=== PATIENT | female | born 1990 | race Caucasian/White ===

== ENCOUNTER 2016-12-05 22:36 | Emergency (ER) | payer MEDICAID, OTHER ==
[~2016-12-05] VITALS: Ht 160 cm; Wt 49.8 kg
[2016-12-05 22:59] VITALS: BP 108/77; PULSE 100; RESP 16; TEMP 98.5; O2SAT 99
[2016-12-05 23:59] VITALS: BP 106/63; PULSE 91; RESP 20; TEMP 97.7; O2SAT 100
--- NOTE | 2016-12-06 01:01 | PD ---
HPI Chief Complaint: Cold / Flu Symptoms Time Seen by Provider: 00:47 Travel History International Travel<30 days: No Contact w/Intl Traveler<30days: No Traveled to known affect area: No History of Present Illness HPI The patient is a 26-year-old female that for 7 days has had a cough which is usually nonproductive but occasionally productive of green sputum, sore throat, gradual onset and global headache and nasal congestion. She has chest pain only around the lower ribs where the muscles attach and it is sharp and pleuritic. She is not short of breath. She has not had a fever. 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 [facility] Past Medical History Bipolar Disorder: Yes (BIPOLAR & PANIC DISORDER) Depression: Yes Cancer: No Diminished Hearing: No Psychiatric: Yes Immunizations Current: Yes Seizures: No Thyroid Disease: No Ulcer: No Tetanus Vaccination: > 5 Years Influenza Vaccination: Yes ?: Unknown LMP: One week ago : 5 Para: 3 Miscarriage: 2 : 0 Ovarian Cysts: Yes ([id number]) Past Surgical History Other Surgery: Yes (HIP DYSPLASA ) Social History Alcohol Use: No Tobacco Use: No Substance Use: No Allergies-Medications (Allergen,Severity, Reaction): Coded Allergies: Macrolides (Verified Allergy, Unknown, 12/05/16) Fentanyl (Verified Adverse Reaction, Severe, Itching, 12/05/16) Penicillin (Verified Adverse Reaction, Severe, Hives, 12/05/16) Sulfa (Verified Adverse Reaction, Severe, Respiratory Failure, 12/05/16) Reported Meds & Prescriptions Reported Meds & Active Scripts Active No Active Prescriptions or Reported Medications Review of Systems Except as stated in HPI: all other systems reviewed are Neg Physical Exam Narrative GENERAL: The patient is alert, oriented 3 in no respiratory distress. Her vital signs are normal. SKIN: Warm and dry. HEAD: Atraumatic. Normocephalic. EYES: Pupils equal and round. No scleral icterus. No injection or drainage. ENT: No nasal bleeding or discharge. Mucous membranes pink and moist. The tympanic membranes are clear and the throat is clear without erythema, exudate or abscess. NECK: Trachea midline. No JVD. There is no meningismus. CARDIOVASCULAR: Regular rate and rhythm. No murmur appreciated. RESPIRATORY: No accessory muscle use. Clear to auscultation. Breath sounds equal bilaterally. GASTROINTESTINAL: Abdomen soft, non-tender, nondistended. Hepatic and splenic margins not palpable. No guarding or rebound is present. MUSCULOSKELETAL: No obvious deformities. No clubbing. No cyanosis. No edema. NEUROLOGICAL: Awake and alert. No obvious cranial nerve deficits. Motor grossly within normal limits. Normal speech. PSYCHIATRIC: Appropriate mood and affect; insight and judgment normal. Data Data Last Documented VS Vital Signs Date Time Temp Pulse Resp B/P Pulse Ox O2 Delivery O2 Flow Rate FiO2 12/06/16 01:20 89 18 95/66 100 Room Air 12/05/16 23:59 97.7 Orders Group A Rapid Strep Screen (12/06/16 00:53) Chest, Pa & Lat (12/06/16 00:53) Strep Culture (Group A) (12/06/16 00:55) [facility] Medical Decision Making Medical Screen Exam Complete: Yes Emergency Medical Condition: Yes Medical Record Reviewed: Yes Interpretation(s) The strep Screen was negative for group A strep antigen. The chest x-ray shows no acute cardiopulmonary disease. Differential Diagnosis Viral upper respiratory infection, strep pharyngitis, pneumonia Narrative Course The patient has a viral upper respiratory infection. There is no evidence for pneumonia and the pharyngitis is apparently viral. Diagnosis Primary Impression: Viral syndrome Additional Instructions: As we discussed, do not drink alcohol or drive on the cough syrup. It has hydrocodone in it and can make you sleepy and dizzy. It is designed to help you sleep at night. Med/Other Pt SpecificInfo: Prescription(s) given Scripts Hydrocodone-Guaifenesin Liq (Flowtuss Liq)2.5-200 Mg/5 Ml Soln5 Ml PO Q6H PRN ( COUGH AND COLD SYMPTOMS) #200 ML Ref 0 Prov:Austin Vu MD 12/06/16 Disposition: 01 DISCHARGE HOME Condition: Stable Austin Vu MD Dec 06, 2016 01:01
[2016-12-06 01:20] VITALS: BP 95/66; PULSE 89; RESP 18; O2SAT 100
[2016-12-06] MEDS ORDERED: HYDR1SOL20 PO (02:01)
--- NOTE | 2016-12-06 02:07 | RADHPO ---
EXAM DATE/TIME: 12/06/2016 01:34 [facility] COMPARISON: CHEST PA & LAT, June 29, 2012, 14:25. INDICATIONS : Fever, cough MEDICAL HISTORY : None. SURGICAL HISTORY : None. ENCOUNTER: Initial ACUITY: 1 week PAIN SCORE: 4/10 LOCATION: Bilateral chest FINDINGS: PA and lateral views of the chest demonstrate the lungs to be symmetrically aerated without evidence of mass, infiltrate or effusion. The cardiomediastinal contours are unremarkable. Osseous structure s are intact. CONCLUSION: No acute disease. lFavio Stevens MD on December 06, 2016 at 2:06 Board Certified Radiologist. This report was verified electronically.
[2016-12-06 02:10] VITALS: BP 112/78; PULSE 87; RESP 18; O2SAT 96
[2016-12-06] MEDS ORDERED: ROBITUSSIN AC PO (09:54)
--- NOTE | 2016-12-06 09:54 | PD ---
Physical Exam Narrative Patient came back requesting different cough medication. Data Data Last Documented VS Vital Signs Date Time Temp Pulse Resp B/P Pulse Ox O2 Delivery O2 Flow Rate FiO2 12/06/16 02:10 87 18 112/78 96 Room Air 12/05/16 23:59 97.7 Orders Group A Rapid Strep Screen (12/06/16 00:53) Chest, Pa & Lat (12/06/16 00:53) Strep Culture (Group A) (12/06/16 00:55) MDM Supervised Visit with MIGUEL: Yes Diagnosis Primary Impression: Viral syndrome Referrals: Primary Care Physician call for appointment Patient Instructions: General Instructions, Viral Syndrome (ED) Departure Forms: Work Release, Enter return to work date: Dec 10, 2016 Tests/Procedures Additional Instruction: As we discussed, do not drink alcohol or drive on the cough syrup. It has hydrocodone in it and can make you sleepy and dizzy. It is designed to help you sleep at night. Scripts [Robitussin Ac] No Conflict Check10 Ml PO Q6HR #120 Prov:Jesús Barlow MD 12/06/16 Hydrocodone-Guaifenesin Liq (Flowtuss Liq)2.5-200 Mg/5 Ml Soln5 Ml PO Q6H PRN ( COUGH AND COLD SYMPTOMS) #200 ML Ref 0 Prov:Austin Vu MD 12/06/16 Disposition: 01 DISCHARGE HOME Condition: Stable Jesús Barlow MD Dec 06, 2016 09:54
== END 2016-12-06 02:21 | disposition home or self-care (01) ==
LOC: PHED 22:36
DX: B34.9 Viral infection, unspecified (principal)
CPT/HCPCS: 71020; 87081; 87880; 99284

== ENCOUNTER 2016-12-14 10:46 | Emergency (ER) | payer MEDICAID, OTHER ==
[~2016-12-14] VITALS: Ht 160 cm; Wt 50.0 kg
[~2016-12-14 10:46] MED LIST: HYDR1SOL20 PO; ROBITUSSIN AC PO
[2016-12-14 10:47] VITALS: BP 121/78; PULSE 116; RESP 24; TEMP 97.3; O2SAT 100
[2016-12-14] MEDS ORDERED: LORA-474 PO (10:57)
[2016-12-14] MEDS ORDERED: SODIUM CHLORIDE 0.9% FLUSH 5 ML FLUSH IVF PRN (11:15)
[2016-12-14] MEDS ORDERED: SODIUM CHLORID 0.9% 500 ML INJ 500 ML IV ONE (11:15)
[2016-12-14 11:16] VITALS: BP_SYST 108; BP_SYST 118; BP_DIAS 70; BP_DIAS 77; PULSE 89; RESP 18; O2SAT 99
[2016-12-14 11:17] VITALS: RESP 17; O2SAT 99
--- NOTE | 2016-12-14 11:18 | PD ---
HPI Chief Complaint: Chest Pain Time Seen by Provider: 11:11 Travel History International Travel<30 days: No Contact w/Intl Traveler<30days: No Traveled to known affect area: No History of Present Illness HPI Patient is a 26-year-old female who presents emergency department for evaluation of chest pain or shortness of breath. Patient states the pain is on her left chest under her breast, she reports that shooting to her back. She rates her pain a 10 out of 10 at times. Patient states she's been short of breath since December 15 when she was diagnosed with a viral infection. She continued to feel short of breath so a few days later she presented to [facility]. She reports being given anxiety medication. For the last 2 days patient reports passing out, she states she passed out at 3 PM yesterday began at 6 PM. She denies any head injury but endorses loss of consciousness. Prior to passing out she reports dizziness and then everything going "black". She states that pain is worse when she stands or exerts herself, it is improved with lying down but her dizziness is exacerbated when she is lying down. She denies any headaches, fevers, nausea, vomiting, diarrhea, cough, new stressors, change in appetite. Patient states she has a copper IUD and her last menstrual cycle was on November 27. [facility] Past Medical History Bipolar Disorder: Yes (BIPOLAR & PANIC DISORDER) Anxiety: Yes Depression: Yes Cancer: No Diminished Hearing: No Immunizations Current: Yes Seizures: No Thyroid Disease: No Ulcer: No Tetanus Vaccination: > 5 Years Influenza Vaccination: Yes LMP: 11/27/16 : 5 Para: 3 Miscarriage: 2 : 0 Ovarian Cysts: Yes ([id number]) Past Surgical History Other Surgery: Yes (HIP DYSPLASA ) Social History Alcohol Use: Yes (socially) Tobacco Use: Yes (occasionally) Substance Use: No Allergies-Medications (Allergen,Severity, Reaction): Coded Allergies: Macrolides (Verified Allergy, Unknown, RASH, 12/14/16) Fentanyl (Verified Adverse Reaction, Severe, Itching, 12/14/16) Penicillin (Verified Adverse Reaction, Severe, Hives, 12/14/16) Sulfa (Verified Adverse Reaction, Severe, Respiratory Failure, 12/14/16) Reported Meds & Prescriptions Reported Meds & Active Scripts Active Reported Ativan (Lorazepam) 1 Mg Tab 1 Mg PO Q6H PRN Review of Systems Except as stated in HPI: all other systems reviewed are Neg General / Constitutional: No: Fever, Chills Eyes: No: Visual changes HENT: Positive: Lightheadedness, No: Headaches Cardiovascular: Positive: Chest Pain or Discomfort, Palpitations, Tachycardia, Syncope, Dyspnea on exertion Respiratory: Positive: Shortness of Breath, No: Cough, Wheezing Gastrointestinal: No: Nausea, Vomiting, Diarrhea, Abdominal Pain Musculoskeletal: No: Myalgias Neurologic: Positive: Dizziness, Syncope, No: Focal Abnormalities, Headache, Change in Mentation, Paresthesia, Sensory Disturbance Psychiatric: No: Anxiety, Depression, Suicidal Ideations, Homicidal Ideation Physical Exam Narrative GENERAL: Well-developed, well-nourished, alert female. Appears anxious, in no acute distress. SKIN: Warm and dry. HEAD: Atraumatic. Normocephalic. EYES: Pupils equal and round. No scleral icterus. No injection or drainage. ENT: No nasal bleeding or discharge. Mucous membranes pink and moist. NECK: Trachea midline. No JVD. CARDIOVASCULAR: Tachycardic. No murmur appreciated. RESPIRATORY: No accessory muscle use. Clear to auscultation. Breath sounds equal bilaterally. Tachypneic GASTROINTESTINAL: Abdomen soft, non-tender, nondistended. Hepatic and splenic margins not palpable. MUSCULOSKELETAL: No obvious deformities. No clubbing. No cyanosis. No edema. NEUROLOGICAL: Awake and alert. No obvious cranial nerve deficits. Motor grossly within normal limits. Normal speech. PSYCHIATRIC: Anxious mood and affect; insight and judgment normal. Data Data Last Documented VS Vital Signs Date Time Temp Pulse Resp B/P Pulse Ox O2 Delivery O2 Flow Rate FiO2 12/14/16 12:12 76 17 98/66 99 Room Air 12/14/16 10:47 97.3 Orders Electrocardiogram (12/14/16 ) Ckmb (Isoenzyme) Profile (12/14/16 11:09) Complete Blood Count With Diff (12/14/16 11:09) Comprehensive Metabolic Panel (12/14/16 11:09) Magnesium (Mg) (12/14/16 11:09) Prothrombin Time / Inr (Pt) (12/14/16 11:09) Act Partial Throm Time (Ptt) (12/14/16 11:09) Troponin I (12/14/16 11:09) Chest, Single Ap (12/14/16 11:09) Ecg Monitoring (12/14/16 11:09) Bilateral Bp Monitoring (12/14/16 11:09) Iv Access Insert/Monitor (12/14/16 11:09) Oximetry (12/14/16 11:09) Oxygen Administration (12/14/16 11:09) Sodium Chloride 0.9% Flush (Ns Flush) (12/14/16 11:15) Sodium Chlorid 0.9% 500 Ml Inj (Ns 500 M (12/14/16 11:15) Ct Pulmonary Angiogram (12/14/16 11:09) Ed Urine Pregnancytest Poc (12/14/16 11:09) Lipase (12/14/16 11:12) Iohexol 350 Inj (Omnipaque 350 Inj) (12/14/16 13:12) Labs Laboratory Tests Test 12/14/16 11:20 White Blood Count 6.7 TH/MM3 Red Blood Count 4.40 MIL/MM3 Hemoglobin 12.6 GM/DL Hematocrit 37.8 % Mean Corpuscular Volume 85.9 FL Mean Corpuscular Hemoglobin 28.7 PG Mean Corpuscular Hemoglobin 33.4 % Concent Red Cell Distribution Width 14.1 % Platelet Count 232 TH/MM3 Mean Platelet Volume 8.0 FL Neutrophils (%) (Auto) 53.1 % Lymphocytes (%) (Auto) 36.5 % Monocytes (%) (Auto) 9.5 % Eosinophils (%) (Auto) 0.5 % Basophils (%) (Auto) 0.4 % Neutrophils # (Auto) 3.5 TH/MM3 Lymphocytes # (Auto) 2.4 TH/MM3 Monocytes # (Auto) 0.6 TH/MM3 Eosinophils # (Auto) 0.0 TH/MM3 Basophils # (Auto) 0.0 TH/MM3 CBC Comment DIFF FINAL Differential Comment Prothrombin Time 11.7 SEC Prothromb Time International 1.1 RATIO Ratio Activated Partial 29.7 SEC Thromboplast Time Sodium Level 137 MEQ/L Potassium Level 3.9 MEQ/L Chloride Level 106 MEQ/L Carbon Dioxide Level 21.6 MEQ/L Anion Gap 9 MEQ/L Blood Urea Nitrogen 18 MG/DL Creatinine 0.89 MG/DL Estimat Glomerular Filtration 76 ML/MIN Rate Random Glucose 80 MG/DL Calcium Level 9.2 MG/DL Magnesium Level 2.0 MG/DL Total Bilirubin 1.1 MG/DL Aspartate Amino Transf 17 U/L (AST/SGOT) Alanine Aminotransferase 16 U/L (ALT/SGPT) Alkaline Phosphatase 50 U/L Total Creatine Kinase 88 U/L Troponin I LESS THAN 0.02 NG/ML Total Protein 7.8 GM/DL Albumin 4.2 GM/DL Lipase 257 U/L MDM Medical Decision Making Medical Screen Exam Complete: Yes Emergency Medical Condition: Yes Interpretation(s) Last Impressions Chest X-Ray 12/14/16 1109 Signed Impressions: Service Date/Time: Wednesday, December 14, 2016 11:13 - CONCLUSION: Normal examination. Deanna Kelly MD CT Angiography 12/14/16 1109 Signed Impressions: Service Date/Time: Wednesday, December 14, 2016 12:58 - CONCLUSION: 1. No evidence of pulmonary embolism. Antwon Conley MD Laboratory Tests Test 12/14/16 11:20 White Blood Count 6.7 TH/MM3 Red Blood Count 4.40 MIL/MM3 Hemoglobin 12.6 GM/DL Hematocrit 37.8 % Mean Corpuscular Volume 85.9 FL Mean Corpuscular Hemoglobin 28.7 PG Mean Corpuscular Hemoglobin 33.4 % Concent Red Cell Distribution Width 14.1 % Platelet Count 232 TH/MM3 Mean Platelet Volume 8.0 FL Neutrophils (%) (Auto) 53.1 % Lymphocytes (%) (Auto) 36.5 % Monocytes (%) (Auto) 9.5 % Eosinophils (%) (Auto) 0.5 % Basophils (%) (Auto) 0.4 % Neutrophils # (Auto) 3.5 TH/MM3 Lymphocytes # (Auto) 2.4 TH/MM3 Monocytes # (Auto) 0.6 TH/MM3 Eosinophils # (Auto) 0.0 TH/MM3 Basophils # (Auto) 0.0 TH/MM3 CBC Comment DIFF FINAL Differential Comment Prothrombin Time 11.7 SEC Prothromb Time International 1.1 RATIO Ratio Activated Partial 29.7 SEC Thromboplast Time Sodium Level 137 MEQ/L Potassium Level 3.9 MEQ/L Chloride Level 106 MEQ/L Carbon Dioxide Level 21.6 MEQ/L Anion Gap 9 MEQ/L Blood Urea Nitrogen 18 MG/DL Creatinine 0.89 MG/DL Estimat Glomerular Filtration 76 ML/MIN Rate Random Glucose 80 MG/DL Calcium Level 9.2 MG/DL Magnesium Level 2.0 MG/DL Total Bilirubin 1.1 MG/DL Aspartate Amino Transf 17 U/L (AST/SGOT) Alanine Aminotransferase 16 U/L (ALT/SGPT) Alkaline Phosphatase 50 U/L Total Creatine Kinase 88 U/L Troponin I LESS THAN 0.02 NG/ML Total Protein 7.8 GM/DL Albumin 4.2 GM/DL Lipase 257 U/L Vital Signs Date Time Temp Pulse Resp B/P Pulse Ox O2 Delivery O2 Flow Rate FiO2 12/14/16 10:47 97.3 116 24 121/78 100 Room Air Differential Diagnosis Pulmonary embolism versus pleurisy versus panic attack versus anxiety versus other Narrative Course Patient is a 26-year-old female who presented to emergency room for evaluation of chest pain and shortness of breath. Patient is tachycardic and tachypneic on initial presentation. She appears slightly anxious. Patient placed on telemetry monitoring, continuous pulse oximetry, IV access initiated. EKG reviewed by me and my attending physician shows sinus rhythm with a rate of 99. Labs and imaging ordered and pending. CBC, chemistry, troponin, coags have been reviewed and are unremarkable. Chest x-ray shows no acute disease. Patient's heart rate has normalized, last set of vital signs shows a heart rate of 89, patient's well oxygenated on room air. CT scan pending. Urine test is negative. CT of the chest is negative for pulmonary embolism. Patient has been resting comfortably since she presented to emergency department, her vital signs are stable. Patient has a prescription for Ativan at home, she was encouraged to follow-up with a primary care provider or the [facility] or [facility]. She will be given a prescription for ibuprofen as pain could be pleuritic/musculoskeletal. Patient is encouraged to return to emergency department for any new or worsening symptoms. She was reassured that her labs and imaging show no sign of cardiac or pulmonary etiologies. Patient verbalized understanding of these instructions. Patient stable for discharge. Diagnosis Primary Impression: Chest pain, non-cardiac Referrals: [facility] Patient Instructions: Anxiety (ED), Chest Pain (ED), Chest Wall Pain (ED), General Instructions Additional Instructions: Follow-up with a primary doctor or at the [facility] Return to emergency department for any new or worsening symptoms Take medications as directed Med/Other Pt SpecificInfo: Prescription(s) given Scripts Ibuprofen 800 Mg Uyi125 Mg PO Q6HR PRN (PAIN) #40 TAB Ref 0 Prov:Mariluz Berg 12/14/16 Disposition: 01 DISCHARGE HOME Condition: Stable Mariluz Berg Dec 14, 2016 11:18
[2016-12-14 11:34] LABS: AUTOMATED NEUTROPHIL # 3.5 TH/MM3 (1.8-7.7); BASOPHIL % 0.4 % (0.0-2.0); EOSINOPHIL % 0.5 % (0.0-4.0); HEMATOCRIT 37.8 % (35.0-46.0); HEMO FLAGS DIFF FINAL; LYMPH % 36.5 % (9.0-44.0); LYMPHOCYTE # 2.4 TH/MM3 (1.0-4.8); MEAN CELL VOLUME 85.9 FL (80.0-100.0); MEAN CORPUSCULAR HEMOGLOBIN 28.7 PG (27.0-34.0); MEAN CORPUSCULAR HGB CONC 33.4 % (32.0-36.0); MONO % 9.5 % (0.0-8.0); NEUT % 53.1 % (16.0-70.0); PLATELET COUNT 232 TH/MM3 (150-450); RED CELL DISTRIBUTION WIDTH 14.1 % (11.6-17.2); WHITE BLOOD COUNT 6.7 TH/MM3 (4.0-11.0)
--- NOTE | 2016-12-14 11:42 | RADRPT ---
EXAM DATE/TIME: 12/14/2016 11:13 [facility] COMPARISON: No previous studies available for comparison. INDICATIONS : Chest pain, short of breath. MEDICAL HISTORY : None. SURGICAL HISTORY : None. ENCOUNTER: Initial ACUITY: 4 - 6 days PAIN SCORE: 7/10 LOCATION: Left chest FINDINGS: A single view of the chest demonstrates the lungs to be symmetrically aerated without evidence of mas s, infiltrate or effusion. The cardiomediastinal contours are unremarkable. Osseous structures are intact. CONCLUSION: Normal examination. Deanna Kelly MD on December 14, 2016 at 11:41 Board Certified Radiologist. This report was verified electronically.
[2016-12-14 11:49] LABS: APTT (PATIENT) 29.7 SEC (24.3-30.1); INTERNATIONAL NORMALIZED RATIO 1.1 RATIO; PROTHROMBIN TIME - PATIENT 11.7 SEC (9.8-11.6)
[2016-12-14 11:54] LABS: ALT (GPT) 16 U/L (10-53); ANION GAP 9 MEQ/L (5-15); AST (GOT) 17 U/L (15-37); BICARBONATE 21.6 MEQ/L (21.0-32.0); BLOOD UREA NITROGEN 18 MG/DL (7-18); CHLORIDE 106 MEQ/L (98-107); GLOMERULAR FILTRATION RATE 76 ML/MIN (>89); POTASSIUM 3.9 MEQ/L (3.5-5.1); SODIUM (NA) 137 MEQ/L (136-145)
[2016-12-14 11:55] LABS: ALKALINE PHOSPHATASE 50 U/L (45-117); CREATINE KINASE 88 U/L (26-192); TOTAL BILIRUBIN ADULT 1.1 MG/DL (0.2-1.0)
[2016-12-14 12:12] VITALS: BP 98/66; PULSE 76; RESP 17; O2SAT 99
[2016-12-14] MEDS ORDERED: IOHEXOL 350 MG/ML 10 ML VIAL (for RAD DIAG) IV ONE (13:12)
--- NOTE | 2016-12-14 13:33 | RADRPT ---
EXAM DATE/TIME: 12/14/2016 12:58 [facility] COMPARISON: No previous studies available for comparison. INDICATIONS : Short of breath. Left chest pain. IV CONTRAST: 50 cc Omnipaque 350 (iohexol) IV RADIATION DOSE: 20.33 CTDIvol (mGy) MEDICAL HISTORY : None SURGICAL HISTORY : None. ENCOUNTER: Initial ACUITY: 3 days PAIN SCALE: 8/10 LOCATION: Left chest TECHNIQUE: Volumetric scanning of the chest was performed using a pulmonary embolism protocol MIP images were re constructed. Using automated exposure control and adjustment of the mA and/or kV according to patien t size, radiation dose was kept as low as reasonably achievable to obtain optimal diagnostic quality images. FINDINGS: Examination of the pulmonary vasculature demonstrates good filling of the main, lobar and segmental b ranches. There are no filling defects to suggest pulmonary embolism. Multiplanar reconstructions are also unremarkable. Examination of the lung arora demonstrates no evidence of pulmonary nodule. No pleural fluid is iden tified. Examination of the mediastinum demonstrates no abnormally enlarged lymph nodes by CT criteria . No axillary or hilar abnormalities are identified. Coronary artery calcifications are not present. CONCLUSION: 1. No evidence of pulmonary embolism. Antwon Conley MD on December 14, 2016 at 13:26 Board Certified Radiologist. This report was verified electronically.
[2016-12-14] MEDS ORDERED: IBUP800T23 PO (13:46)
[2016-12-14 14:47] VITALS: BP 110/71; TEMP 97.8
--- NOTE | 2016-12-15 21:28 | EKG ---
Date Performed: 12/14/2016 Time Performed: 10:10:04 PTAGE: 26 years EKG: Sinus rhythm NORMAL ECG WARNING: DATA QUALITY MAY AFFECT INTERPRETATION NO PREVIOUS TRACING DOCTOR: Mahesh Lyle Interpretating Date/Time 12/15/2016 21:13:51
== END 2016-12-14 14:48 | disposition home or self-care (01) ==
LOC: NEPE 10:46
DX: R07.9 Chest pain, unspecified (principal); R00.0 Tachycardia, unspecified; R06.82 Tachypnea, not elsewhere classified; F31.9 Bipolar disorder, unspecified; F41.0 Panic disorder [episodic paroxysmal anxiety]; F41.8 Other specified anxiety disorders
CPT/HCPCS: 71010; 71275; 80053; 82550; 83690; 83735; 84484; 84703; 85025; 85610; 85730; 93005; 96360; 99284; J7040; Q9967

== ENCOUNTER 2017-04-22 15:21 | Emergency (ER) | payer MEDICAID, OTHER ==
[~2017-04-22] VITALS: Ht 157.5 cm; Wt 49.0 kg
[~2017-04-22 15:21] MED LIST changes: -HYDR1SOL20 PO; +IBUP800T23 PO; +LORA-474 PO; -ROBITUSSIN AC PO
[2017-04-22 15:25] VITALS: BP 112/78; PULSE 100; RESP 16; TEMP 98.3; O2SAT 99
[2017-04-22 15:42] VITALS: O2SAT 98
[2017-04-22] MEDS ORDERED: ALEV220T14 PO (15:47)
[2017-04-22] MEDS ORDERED: SODIUM CHLOR 0.9% 1000 ML INJ 1,000 ML IV SCH (15:55)
[2017-04-22] MEDS ORDERED: ONDANSETRON HCL 4 MG/2 ML VIAL IVP ONE (16:00)
[2017-04-22] MEDS ORDERED: KETOROLAC TROMETHAMINE 30 MG/ML (IVP) VIAL IVP ONE (16:00)
[2017-04-22 16:03] LABS: BLOOD, URINE NEG (NEG); GLUCOSE,URINE NEG (NEG); KETONE, URINE NEG (NEG); NITRITE,URINE NEG (NEG)
--- NOTE | 2017-04-22 16:06 | PD ---
HPI Chief Complaint: Flank/Kidney Pain Time Seen by Provider: 15:50 Travel History International Travel<30 days: No Contact w/Intl Traveler<30days: No Traveled to known affect area: No History of Present Illness HPI 27-year-old female complains of right flank pain and right-sided abdominal pain. Patient states that the pain started last night. Patient states the pain is sharp pain constant pain started on the right flank area with radiation to right side abdomen. Patient denies any fever chills. Patient states that she has intermittent nausea vomiting. Patient states that she has dysuria last week but not this week. Patient denies any vaginal discharge or bleeding. Patient states that her last menstrual period was April 10. Patient states that she probably passed kidney stone recently. Patient did not see any physician for kidney stone recently. Patient states that she has history kidney stone when she was about 10 years ago. On a scale of 1-10 the pain is an 8. PFSH Past Medical History Bipolar Disorder: Yes (BIPOLAR & PANIC DISORDER) Anxiety: Yes Depression: Yes Cancer: No Diminished Hearing: No Kidney Stones: Yes Immunizations Current: Yes Seizures: No Thyroid Disease: No Ulcer: No Tetanus Vaccination: > 5 Years Influenza Vaccination: Yes ?: Not LMP: 04/10/2017 : 5 Para: 3 Miscarriage: 2 : 0 Ovarian Cysts: Yes ([id number]) Past Surgical History Other Surgery: Yes (HIP DYSPLASA ) Social History Alcohol Use: Yes (socially) Tobacco Use: Yes (occasionally) Substance Use: No Allergies-Medications (Allergen,Severity, Reaction): Coded Allergies: Macrolides (Verified Allergy, Unknown, RASH, 04/22/17) Fentanyl (Verified Adverse Reaction, Severe, Itching, 04/22/17) Penicillin (Verified Adverse Reaction, Severe, Hives, 04/22/17) Sulfa (Verified Adverse Reaction, Severe, Respiratory Failure, 04/22/17) Reported Meds & Prescriptions Reported Meds & Active Scripts Active Ibuprofen 800 Mg Tab 800 Mg PO Q6HR PRN Reported Aleve Arthritis (Naproxen Sodium) 220 Mg Tab 220 Mg PO BID Review of Systems General / Constitutional: No: Fever Eyes: No: Visual changes HENT: No: Headaches Cardiovascular: No: Chest Pain or Discomfort Respiratory: No: Shortness of Breath Gastrointestinal: Positive: Nausea, Vomiting, Abdominal Pain Genitourinary: No: Dysuria Musculoskeletal: No: Pain Skin: No Rash Neurologic: No: Weakness Psychiatric: No: Depression Endocrine: No: Polydipsia Hematologic/Lymphatic: No: Easy Bruising Physical Exam Narrative GENERAL: Well-nourished, well-developed patient. SKIN: Focused skin assessment warm/dry. HEAD: Normocephalic. EYES: No scleral icterus. No injection or drainage. NECK: Supple, trachea midline. No JVD or lymphadenopathy. CARDIOVASCULAR: Regular rate and rhythm without murmurs, gallops, or rubs. RESPIRATORY: Breath sounds equal bilaterally. No accessory muscle use. GASTROINTESTINAL: Abdomen soft, nondistended. Patient has moderate tenderness on palpation right side the abdomen. Questionable rebound tenderness. No mass. MUSCULOSKELETAL: No cyanosis, or edema. BACK: Moderate tenderness on palpation right flank and right side lumbar spine area, without obvious deformity. Questionable right CVA tenderness. Neurologic exam normal. Data Data Last Documented VS Vital Signs Date Time Temp Pulse Resp B/P Pulse Ox O2 Delivery O2 Flow Rate FiO2 04/22/17 15:25 98.3 100 16 112/78 99 Orders Urinalysis - C+S If Indicated (04/22/17 15:40) Ed Urine Pregnancytest Poc (04/22/17 15:42) Complete Blood Count With Diff (04/22/17 15:55) Comprehensive Metabolic Panel (04/22/17 15:55) Lipase (04/22/17 15:55) Prothrombin Time / Inr (Pt) (04/22/17 15:55) Act Partial Throm Time (Ptt) (04/22/17 15:55) Ct Abd/Pel W Iv Contrast(Rout) (04/22/17 15:55) Iv Access Insert/Monitor (04/22/17 15:55) Ecg Monitoring (04/22/17 15:55) Oximetry (04/22/17 15:55) Ondansetron Inj (Zofran Inj) (04/22/17 16:00) Sodium Chlor 0.9% 1000 Ml Inj (Ns 1000 M (04/22/17 15:55) Ketorolac Inj (Toradol Inj) (04/22/17 16:00) MDM Medical Decision Making Medical Screen Exam Complete: Yes Emergency Medical Condition: Yes Differential Diagnosis Differential diagnosis including musculoskeletal, pyelonephritis, nephrolithiasis, colitis, cholecystitis. Narrative Course 27-year-old female with right flank pain and right-sided abdominal pain. Jesús Barlow MD April 22, 2017 16:06
[2017-04-22 16:13] LABS: METHOD OF COLLECTION CLEAN CATCH; URINE COLOR YELLOW (YELLW/STRAW)
[2017-04-22 16:14] LABS: AUTOMATED NEUTROPHIL # 2.2 TH/MM3 (1.8-7.7); BASOPHIL % 0.4 % (0.0-2.0); EOSINOPHIL # 0.1 TH/MM3 (0-0.4); EOSINOPHIL % 2.4 % (0.0-4.0); HEMATOCRIT 34.4 % (35.0-46.0); HEMO FLAGS DIFF FINAL; LYMPH % 47.3 % (9.0-44.0); LYMPHOCYTE # 2.5 TH/MM3 (1.0-4.8); MEAN CELL VOLUME 84.9 FL (80.0-100.0); MEAN CORPUSCULAR HEMOGLOBIN 27.6 PG (27.0-34.0); MEAN CORPUSCULAR HGB CONC 32.5 % (32.0-36.0); MONO % 9.6 % (0.0-8.0); NEUT % 40.3 % (16.0-70.0); PLATELET COUNT 234 TH/MM3 (150-450); RED BLOOD COUNT 4.05 MIL/MM3 (4.00-5.30); RED CELL DISTRIBUTION WIDTH 14.4 % (11.6-17.2); WHITE BLOOD COUNT 5.4 TH/MM3 (4.0-11.0)
[2017-04-22 16:14] LABS: COMMENT (UR) CULT NOT INDICATED; CULTURE IF INDICATED CULT NOT INDICATED; RBC, URINE 0-3 /hpf (0-3); SQUAMOUS EPITHELIAL CELL URINE 0-5 /hpf (0-5)
[2017-04-22 16:21] LABS: CHLORIDE 107 MEQ/L (98-107); POTASSIUM 3.7 MEQ/L (3.5-5.1); SODIUM (NA) 140 MEQ/L (136-145)
[2017-04-22 16:25] LABS: ANION GAP 5 MEQ/L (5-15); BLOOD UREA NITROGEN 9 MG/DL (7-18)
[2017-04-22 16:27] LABS: INTERNATIONAL NORMALIZED RATIO 1.1 RATIO
[2017-04-22 16:28] LABS: ALT (GPT) 15 U/L (10-53); AST (GOT) 10 U/L (15-37); GLOMERULAR FILTRATION RATE 114 ML/MIN (>89)
[2017-04-22 16:30] LABS: TOTAL BILIRUBIN ADULT 1.1 MG/DL (0.2-1.0)
[2017-04-22 16:31] LABS: ALKALINE PHOSPHATASE 39 U/L (45-117)
--- NOTE | 2017-04-22 16:45 | PD ---
Data Data Last Documented VS Vital Signs Date Time Temp Pulse Resp B/P Pulse Ox O2 Delivery O2 Flow Rate FiO2 04/22/17 20:14 70 16 98/59 98 04/22/17 19:09 Room Air 04/22/17 15:25 98.3 Orders Urinalysis - C+S If Indicated (04/22/17 15:40) Ed Urine Pregnancytest Poc (04/22/17 15:42) Complete Blood Count With Diff (04/22/17 15:55) Comprehensive Metabolic Panel (04/22/17 15:55) Lipase (04/22/17 15:55) Prothrombin Time / Inr (Pt) (04/22/17 15:55) Act Partial Throm Time (Ptt) (04/22/17 15:55) Ct Abd/Pel W Iv Contrast(Rout) (04/22/17 15:55) Iv Access Insert/Monitor (04/22/17 15:55) Ecg Monitoring (04/22/17 15:55) Oximetry (04/22/17 15:55) Ondansetron Inj (Zofran Inj) (04/22/17 16:00) Sodium Chlor 0.9% 1000 Ml Inj (Ns 1000 M (04/22/17 15:55) Ketorolac Inj (Toradol Inj) (04/22/17 16:00) Iohexol 350 Inj (Omnipaque 350 Inj) (04/22/17 16:51) Wet Prep Profile (04/22/17 16:53) Gc And Chlamydia Pcr (04/22/17 16:53) Us Pelvis Comp W Doppler (04/22/17 ) Labs Laboratory Tests Test 04/22/17 04/22/17 04/22/17 15:40 16:00 17:50 Urine Collection Type CLEAN CATCH Urine Color YELLOW Urine Turbidity CLEAR Urine pH 7.0 Urine Specific [place] 1.018 Urine Protein TRACE mg/dL Urine Glucose (UA) NEG mg/dL Urine Ketones NEG mg/dL Urine Occult Blood NEG Urine Nitrite NEG Urine Bilirubin NEG Urine Leukocyte Esterase NEG Urine RBC 0-3 /hpf Urine Squamous Epithelial 0-5 /hpf Cells Urine Amorphous Sediment FEW Microscopic Urinalysis Comment CULT NOT INDICATED Urine Collection Time 15l40 White Blood Count 5.4 TH/MM3 Red Blood Count 4.05 MIL/MM3 Hemoglobin 11.2 GM/DL Hematocrit 34.4 % Mean Corpuscular Volume 84.9 FL Mean Corpuscular Hemoglobin 27.6 PG Mean Corpuscular Hemoglobin 32.5 % Concent Red Cell Distribution Width 14.4 % Platelet Count 234 TH/MM3 Mean Platelet Volume 7.7 FL Neutrophils (%) (Auto) 40.3 % Lymphocytes (%) (Auto) 47.3 % Monocytes (%) (Auto) 9.6 % Eosinophils (%) (Auto) 2.4 % Basophils (%) (Auto) 0.4 % Neutrophils # (Auto) 2.2 TH/MM3 Lymphocytes # (Auto) 2.5 TH/MM3 Monocytes # (Auto) 0.5 TH/MM3 Eosinophils # (Auto) 0.1 TH/MM3 Basophils # (Auto) 0.0 TH/MM3 CBC Comment DIFF FINAL Differential Comment Prothrombin Time 12.0 SEC Prothromb Time International 1.1 RATIO Ratio Activated Partial 29.0 SEC Thromboplast Time Sodium Level 140 MEQ/L Potassium Level 3.7 MEQ/L Chloride Level 107 MEQ/L Carbon Dioxide Level 28.0 MEQ/L Anion Gap 5 MEQ/L Blood Urea Nitrogen 9 MG/DL Creatinine 0.62 MG/DL Estimat Glomerular Filtration 114 ML/MIN Rate Random Glucose 87 MG/DL Calcium Level 8.4 MG/DL Total Bilirubin 1.1 MG/DL Aspartate Amino Transf 10 U/L (AST/SGOT) Alanine Aminotransferase 15 U/L (ALT/SGPT) Alkaline Phosphatase 39 U/L Total Protein 7.0 GM/DL Albumin 3.8 GM/DL Lipase 223 U/L Clue Cells (Wet Prep) NONE SEEN Vaginal Trichomonas (Wet Prep) NONE SEEN Vaginal Yeast (Wet Prep) NONE SEEN Chlamydia trachomatis DNA NOT DETECTED (PCR) Neisseria gonorrhoeae DNA NOT DETECTED (PCR) MDM Supervised Visit with MIGUEL: No Narrative Course Patient care assumed from Dr. Barlow at 1700. My instruction for her to follow- up CAT scan and disposition the patient properly. Is a 27-year-old female presents emergency Department with right flank pain radiating down her right abdomen. Patient localizes her pain in the area of flank and needs consideration for kidney stone. However I agree with Dr. Barlow's assessment patient is tender in the right lower quadrant. Needs exclusion of appendicitis. CT examination was performed and shows: Last 24 hours Impressions Abdomen/Pelvis CT 04/22/17 0657 Signed Impressions: Service Date/Time: Saturday, April 22, 2017 16:29 - CONCLUSION: 1. IUD in the uterus. 2. Trace fluid in the pelvis. 3. Cystic mass in the right adnexal region. 4. I do not see evidence for a renal stone. There is no evidence for pyelonephritis. Juan Hill MD FACR Pelvis Ultrasound 04/22/17 0000 Signed Impressions: Service Date/Time: Saturday, April 22, 2017 18:49 - CONCLUSION: Negative for free fluid or torsion. Blood flow is symmetric to either ovary. IUD within the uterus.. Juan Hill MD FACR Ultrasound was added given her tenderness here. Pelvic exam was performed by me in nursing photographic developer and printer present at all times: Grossly normal female genitalia without discharge. No cervical motion tenderness no bimanual tenderness. Os is closed. Patient on second revisit was sleeping soundly and in no apparent distress. I discussed with her the impression that she does have an ovarian cyst and may have ruptured however there is no ultrasonographic nor CT evidence of such. Discussed symptomatically management home and returned ED criteria. 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 She stable for discharge this time per Diagnosis Primary Impression: RLQ abdominal pain Additional Impression: Ovarian cyst Med/Other Pt SpecificInfo: Prescription(s) given Scripts Tramadol 50 Mg Tab50 Mg PO Q6H PRN (PAIN) #12 TAB Ref 0 Prov:Kit Torres MD 04/22/17 Ondansetron Odt (Zofran Odt)4 Mg Tab4 Mg SL Q6HR PRN (Nausea/Vomiting) #30 TAB Ref 0 Prov:Kit Torres MD 04/22/17 Disposition: 01 DISCHARGE HOME Condition: Stable Kit Torres MD April 22, 2017 16:45
[2017-04-22] MEDS ORDERED: IOHEXOL 350 MG/ML 10 ML VIAL (for RAD DIAG) IV ONE (16:51)
--- NOTE | 2017-04-22 17:29 | RADHPO ---
EXAM DATE/TIME: 04/22/2017 16:29 [facility] COMPARISON: No previous studies available for comparison. INDICATIONS : Right-sided flank pain since yesterday. History of stones. IV CONTRAST: 71 cc Omnipaque 350 (iohexol) IV ORAL CONTRAST: No oral contrast ingested. RADIATION DOSE: 4.85 CTDIvol (mGy) MEDICAL HISTORY : Renal calculi. SURGICAL HISTORY : None. ENCOUNTER: Initial ACUITY: 2 days PAIN SCALE: 8/10 LOCATION: Right flank abdomen TECHNIQUE: Volumetric scanning of the abdomen and pelvis was performed. Using automated exposure control and ad justment of the mA and/or kV according to patient size, radiation dose was kept as low as reasonably achievable to obtain optimal diagnostic quality images. FINDINGS: Lung bases are clear. The liver is free of focal defects. Spleen, adrenal glands and kidneys are un remarkable. The region of the cecum and terminal ileum are unremarkable. There is no evidence for appendicitis. I don't see inflammatory changes. There is trace free fluid in the pelvis with a 2.5 cm cystic mass in the right adnexal region. There is an IUD evident in the uterus. CONCLUSION: 1. IUD in the uterus. 2. Trace fluid in the pelvis. 3. Cystic mass in the right adnexal region. 4. I do not see evidence for a renal stone. There is no evidence for pyelonephritis. Juan Hill MD FACR on April 22, 2017 at 16:57 Board Certified Radiologist. This report was verified electronically.
[2017-04-22 18:00] VITALS: BP 106/64; PULSE 68; RESP 18; O2SAT 98
[2017-04-22 19:09] VITALS: BP 99/74; PULSE 79; RESP 16; O2SAT 98
--- NOTE | 2017-04-22 19:15 | RADHPO ---
EXAM DATE/TIME: 04/22/2017 18:49 [facility] COMPARISON: No previous studies available for comparison. INDICATIONS : Right pelvic pain. MEDICAL HISTORY : Renal calculi. . Placenta previa/abruptio. Miscarriage x2. Ovarian cysts. Bipolar disorder . Panic disorder. SURGICAL HISTORY : Hip displasia repair as . ENCOUNTER: Initial ACUITY: 1 day PAIN SCORE: 8/10 LOCATION: Bilateral pelvis MEASUREMENTS: UTERUS: 9.2 x 7.8 x 5.0 cm ENDOMETRIAL STRIPE: 11 mm RIGHT OVARY: 3.3 x 3.1 x 2.1 cm LEFT OVARY: 3.4 x 2.6 x 2.7 cm FINDINGS: UTERUS: The myometrium has homogeneous echotexture without mass. IUD is evident. RIGHT OVARY: Ovary contains no mass or significant cystic lesion. LEFT OVARY: Ovary contains no mass or significant cystic lesion. MISCELLANEOUS: No free fluid. CONCLUSION: Negative for free fluid or torsion. Blood flow is symmetric to either ovary. IUD within the uterus. . Juan Hill MD FACR on April 22, 2017 at 19:13 Board Certified Radiologist. This report was verified electronically.
[2017-04-22] MEDS ORDERED: ZOFR4TAB3 SL (19:30)
[2017-04-22] MEDS ORDERED: TRAM50TA PO (19:30)
[2017-04-22 20:14] VITALS: BP 98/59
[2017-04-22 21:51] LABS: CHLAMYDIA PCR NOT DETECTED (NOT DETECT); NEISSERIA PCR NOT DETECTED (NOT DETECT)
== END 2017-04-22 20:15 | disposition home or self-care (01) ==
LOC: PHED 15:21
DX: R10.813 Right lower quadrant abdominal tenderness (principal); Z87.442 Personal history of urinary calculi
CPT/HCPCS: 74177; 76856; 80053; 81001; 83690; 84703; 85025; 85610; 85730; 87210; 87491; 87591; 93975; 96361; 96374; 96375; 99285; J1885; J2405; J7030; Q9967

== ENCOUNTER 2017-09-02 12:12 | Emergency (ER) | payer MEDICAID ==
[~2017-09-02] VITALS: Ht 157.5 cm; Wt 49.9 kg
[~2017-09-02 12:12] MED LIST changes: +ALEV220T14 PO; -LORA-474 PO; +TRAM50TA PO; +ZOFR4TAB3 SL
[2017-09-02 12:21] VITALS: BP 125/84; PULSE 86; RESP 18; TEMP 98.4; O2SAT 100
[2017-09-02] MEDS ORDERED: KETOROLAC TROMETHAMINE 60 MG/2 ML (IM) VIAL IM ONE (13:00)
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
[2017-09-02] MEDS ORDERED: CYCL5TAB PO (14:17)
[2017-09-02] MEDS ORDERED: HYDR-4107 PO (14:17)
[2017-09-02] MEDS ORDERED: HYDR-3516 PO (14:24)
[2017-09-02 14:40] VITALS: BP 106/73
== END 2017-09-02 14:42 | disposition home or self-care (01) ==
LOC: PHEFT 12:12
DX: M54.40 Lumbago with sciatica, unspecified side (principal); M25.512 Pain in left shoulder; M25.551 Pain in right hip; S16.1XXA Strain of muscle, fascia and tendon at neck level, initial encounter; Y04.0XXA Assault by unarmed brawl or fight, initial encounter
CPT/HCPCS: 72040; 72100; 72170; 73030; 96372; 99284; J1885